=== PATIENT | female | born 1945 | race Caucasian/White ===

== ENCOUNTER 2024-04-20 14:45 | Inpatient (IN) | payer MEDICARE, BC ==
[~2024-04-20] VITALS: Ht 170.2 cm; Wt 53.5 kg
[2024-04-20] MEDS ORDERED: oxyCODONE/APAP (5/325 MG) 1 UDTAB TABLET ONE (15:08)
[2024-04-20] MEDS: oxyCODONE/APAP (5/325 MG) 1 UDTAB TABLET PO ONE (15:16)
[2024-04-20 15:56] LABS: BASOPHILS % (AUTO) 0.5 % (0.0-2.0); EOSINOPHILS # (AUTO) 0.1 K/uL (0.0-0.7); EOSINOPHILS % (AUTO) 1.3 % (0.0-6.0); HEMATOCRIT 35 % (33-45); HEMOGLOBIN 11.7 g/dL (11.5-14.8); LYMPHOCYTES # (AUTO) 1.8 K/uL (0.8-4.8); LYMPHOCYTES % (AUTO) 20.6 % (20.0-44.0); MEAN CORPUSCULAR HEMOGLOBIN 34 PG (26.0-33.0); MEAN CORPUSCULAR HGB CONC 34 g/dl (31.0-36.0); MEAN CORPUSCULAR VOLUME 100 fL (82-100); MONOCYTES # (AUTO) 0.8 K/uL (0.1-1.30); MONOCYTES % (AUTO) 9.1 % (2.0-12.0); NEUTROPHILS # (AUTO) 5.9 K/uL (1.8-8.9); NEUTROPHILS % (AUTO) 68.5 % (43.0-81.0); PLATELET COUNT (AUTO) 249 K/uL (150-450); RED BLOOD CELL COUNT(AUTO) 3.43 MIL/uL (4.0-5.2); RED CELL DISTRIBUTION WIDTH 13.7 % (11.5-15.0); WHITE BLOOD COUNT (AUTO) 8.6 K/uL (4.3-11.0)
[2024-04-20 16:06] LABS: ALBUMIN 3.4 g/dL (3.4-5.0); BILIRUBIN,DIRECT 0.1 mg/dL (0.0-0.2); BILIRUBIN,TOTAL 0.4 mg/dL (0.2-1.0); CALCIUM, SERUM 8.9 mg/dL (8.5-10.1); CREATININE 0.8 mg/dL (0.6-1.3); POTASSIUM 4.7 mmol/L (3.5-5.1); TOTAL PROTEIN, SERUM 6.7 g/dL (6.4-8.2)
[2024-04-20] MEDS ORDERED: MORPHINE SULFATE INJ 2 MG/ML DISP.SYRIN ONE (16:29)
[2024-04-20] MEDS: MORPHINE SULFATE INJ 2 MG/ML DISP.SYRIN IV ONE (16:30)
[2024-04-20 16:42] LABS: INR 1.07 (0.91-1.10); PARTIAL THROMBOPLASTIN TIME 23.9 SEC (24.3-34.3); PROTHROMBIN TIME 11.3 SECS (9.2-11.1)
[2024-04-20] MEDS ORDERED: SERT50TA12 PO (17:53)
[2024-04-20] MEDS ORDERED: OMEG-130 PO (17:53)
[2024-04-20] MEDS ORDERED: ACET325T53 PO (17:53)
[2024-04-20] MEDS ORDERED: DONE5TAB34 PO (17:53)
[2024-04-20] MEDS ORDERED: FOLI-65 PO (17:53)
[2024-04-20] MEDS ORDERED: LISI20TA30 PO (17:53)
[2024-04-20] MEDS ORDERED: Z GUARD REMEDY 4 OZ OINT TP PRN (18:30)
[2024-04-20] MEDS ORDERED: ONDANSETRON HCL/PF 4 MG/2 ML VIAL IVP PRN (18:30)
[2024-04-20] MEDS ORDERED: HYDROCODONE/APAP 5/325MG TABLET PO PRN (18:30)
[2024-04-20] MEDS ORDERED: ACETAMINOPHEN 325 MG TABLET PO PRN (18:30)
[2024-04-20] MEDS ORDERED: MAGNESIUM HYDROXIDE 30 ML UDC PO PRN (18:30)
[2024-04-20] MEDS ORDERED: MAG HYDROX/AL HYDROX/SIMETH 30 ML UDC PO PRN (18:30)
[2024-04-20] MEDS: ENOXAPARIN SODIUM 40 MG/0.4 ML DISP.SYRIN SQ SCH (21:00)
[2024-04-20] MEDS: DONEPEZIL 5 MG TABLET PO SCH (21:12)
[2024-04-20] MEDS: IV D5/0.45 NACL 1,000 ML IV PRN (21:30)
[2024-04-20 22:30] VITALS: BP 130/65; TEMP 97.5; O2SAT 92
[2024-04-21 08:00] VITALS: BP 95/61; TEMP 98.1; O2SAT 95
[2024-04-21] MEDS: PANTOPRAZOLE 40 MG VIAL IV SCH (08:31)
[2024-04-21] MEDS: LISINOPRIL (20MG) 20 MG TABLET PO SCH (08:34)
[2024-04-21] MEDS: MULTIPLE VIT (LYCOPENE/FA/MV,CA,IRON,MIN/LUT)1 TAB PO SCH (08:34)
[2024-04-21] MEDS: SERTRALINE HCL 25 MG TABLET PO SCH (08:36)
[2024-04-21] MEDS ORDERED: [UNRECOGNIZED DRUG - OTHER] PO SCH (09:00)
[2024-04-21] MEDS ORDERED: FISH OIL PO SCH (09:00)
[2024-04-21] MEDS ORDERED: DHA PO SCH (09:00)
[2024-04-21] MEDS ORDERED: OMEGA PO SCH (09:00)
[2024-04-21] MEDS ORDERED: EPA PO SCH (09:00)
[2024-04-21 10:20] LABS: BASOPHILS % (AUTO) 0.1 % (0.0-2.0); EOSINOPHILS % (AUTO) 0.1 % (0.0-6.0); HEMATOCRIT 34 % (33-45); HEMOGLOBIN 11.4 g/dL (11.5-14.8); LYMPHOCYTES # (AUTO) 0.4 K/uL (0.8-4.8); LYMPHOCYTES % (AUTO) 3.7 % (20.0-44.0); MEAN CORPUSCULAR HEMOGLOBIN 34 PG (26.0-33.0); MEAN CORPUSCULAR HGB CONC 34 g/dl (31.0-36.0); MEAN CORPUSCULAR VOLUME 100 fL (82-100); MONOCYTES # (AUTO) 0.8 K/uL (0.1-1.30); MONOCYTES % (AUTO) 7.4 % (2.0-12.0); NEUTROPHILS # (AUTO) 10.1 K/uL (1.8-8.9); NEUTROPHILS % (AUTO) 88.7 % (43.0-81.0); PLATELET COUNT (AUTO) 225 K/uL (150-450); RED BLOOD CELL COUNT(AUTO) 3.35 MIL/uL (4.0-5.2); RED CELL DISTRIBUTION WIDTH 13.5 % (11.5-15.0); WHITE BLOOD COUNT (AUTO) 11.3 K/uL (4.3-11.0)
[2024-04-21 10:30] LABS: CALCIUM, SERUM 8.5 mg/dL (8.5-10.1); CREATININE 0.6 mg/dL (0.6-1.3); MAGNESIUM 1.9 mg/dL (1.8-2.4); PHOSPHORUS 2.4 mg/dL (2.5-4.9); POTASSIUM 3.6 mmol/L (3.5-5.1)
[2024-04-21 10:41] LABS: THYROID STIMULATING HORMONE 1.08 uIU/mL (0.358-3.74)
[2024-04-21] MEDS ORDERED: VANCOMYCIN 1 GM VIAL ONE (13:56)
[2024-04-21] MEDS ORDERED: ANESTHESIA TRAY IN PYXIS 1 EA TRAY MC ONE (13:56)
[2024-04-21] MEDS ORDERED: BUPIVACAINE 0.5 % PF 150 MG/30 ML VIAL ONE (13:56)
[2024-04-21 14:00] VITALS: BP 107/59; TEMP 97.9; O2SAT 95
[2024-04-21 15:48] LABS: INR 1.12 (0.91-1.10); PROTHROMBIN TIME 11.8 SECS (9.2-11.1)
[2024-04-21] MEDS ORDERED: ROCURONIUM BROMIDE 50 MG/5 ML ONE (16:49)
[2024-04-21] MEDS ORDERED: FENTANYL PF 100MCG/2ML AMPUL ONE (16:49)
[2024-04-21] MEDS: Sodium Phosphate 15 MMOL in IV NS 0.9% 245 ML IV SCH (18:51)
[2024-04-21 18:59] VITALS: BP 136/73; TEMP 97.6; O2SAT 94
[2024-04-21] MEDS ORDERED: MORPHINE SULFATE INJ 2 MG/ML DISP.SYRIN IV PRN (19:30)
[2024-04-21] MEDS ORDERED: ENOXAPARIN SODIUM 40 MG/0.4 ML DISP.SYRIN SQ SCH (19:30)
[2024-04-21 20:00] VITALS: BP 121/55; TEMP 97.9; O2SAT 93
[2024-04-21] MEDS: IV D5/0.45 NACL W/20 MEQ KCL 1L IV SCH (20:52)
[2024-04-22] MEDS: ANCEF 1 GM/50 ML D5W IV SCH (00:33)
[2024-04-22] MEDS: ZOLPIDEM TARTRATE 5 MG TABLET PO PRN (01:24)
[2024-04-22 06:59] LABS: BASOPHILS % (AUTO) 0.2 % (0.0-2.0); EOSINOPHILS % (AUTO) 0.4 % (0.0-6.0); HEMATOCRIT 33 % (33-45); HEMOGLOBIN 10.9 g/dL (11.5-14.8); LYMPHOCYTES # (AUTO) 0.7 K/uL (0.8-4.8); LYMPHOCYTES % (AUTO) 7.9 % (20.0-44.0); MEAN CORPUSCULAR HEMOGLOBIN 35 PG (26.0-33.0); MEAN CORPUSCULAR HGB CONC 33 g/dl (31.0-36.0); MEAN CORPUSCULAR VOLUME 103 fL (82-100); MONOCYTES # (AUTO) 1.2 K/uL (0.1-1.30); MONOCYTES % (AUTO) 13.3 % (2.0-12.0); NEUTROPHILS # (AUTO) 7.1 K/uL (1.8-8.9); NEUTROPHILS % (AUTO) 78.2 % (43.0-81.0); PLATELET COUNT (AUTO) 203 K/uL (150-450); RED BLOOD CELL COUNT(AUTO) 3.17 MIL/uL (4.0-5.2); RED CELL DISTRIBUTION WIDTH 13.8 % (11.5-15.0)
[2024-04-22 07:23] LABS: CREATININE 0.6 mg/dL (0.6-1.3); MAGNESIUM 2.1 mg/dL (1.8-2.4); PHOSPHORUS 2.9 mg/dL (2.5-4.9)
[2024-04-22 08:00] VITALS: BP 126/85; TEMP 98.6; O2SAT 95
[2024-04-22] MEDS: ENOXAPARIN SODIUM 40 MG/0.4 ML DISP.SYRIN SQ SCH (09:33)
[2024-04-22] MEDS: HYDROCODONE/APAP 10/325MG TABLET PO PRN (17:18)
[2024-04-22 20:00] VITALS: BP 115/53; TEMP 98.1; O2SAT 97
[2024-04-23 08:00] VITALS: BP 117/66; TEMP 98.2; O2SAT 94
[2024-04-23 08:42] VITALS: BP 117/66
[2024-04-23] MEDS: PANTOPRAZOLE 40 MG TABLET.DR PO SCH (08:42)
== END 2024-04-23 14:50 | DRG 522 ==
LOC: ER 14:50 → MED 19:59
PROVIDERS: ADMIT Student in an Organized Health Care Education/Training Program; ATTEND Internal Medicine
PROC: 0SRS0JA Replacement of Left Hip Joint, Femoral Surface with Synthetic Substitute, Uncemented, Open Approach (ICD-10-PCS; principal; 2024-04-21)
DX: S72.012A Unspecified intracapsular fracture of left femur, initial encounter for closed fracture (principal); W01.0XXA Fall on same level from slipping, tripping and stumbling without subsequent striking against object, initial encounter; Y93.9 Activity, unspecified; Y92.89 Other specified places as the place of occurrence of the external cause; I10 Essential (primary) hypertension; F03.90 Unspecified dementia, unspecified severity, without behavioral disturbance, psychotic disturbance, mood disturbance, and anxiety
CPT/HCPCS: 36415; 71045-TC; 73020; 73700-TC; 80048-TC; 80076-TC; 83735-TC; 84100-TC; 84443-TC; 85025-TC; 85610-TC; 85730-TC; 86850-TC; 87081-TC; 93307-TC; 97110-TC; 97116-TC; 97530-TC; A4217; A4223; A6209; A6253; A9563; C1776; G0378; J0690; J1650; J2270; J2470; J2704; J3010; J3370; J3480; J3490; J7050; J7060

== ENCOUNTER 2025-02-04 13:27 | Inpatient (IN) | payer MEDICARE, BC ==
[~2025-02-04] VITALS: Ht 152.4 cm; Wt 43.1 kg
[~2025-02-04 13:27] MED LIST: ACET325T53 PO; DONE5TAB34 PO; FOLI-65 PO; LISI20TA30 PO; OMEG-130 PO; SERT50TA12 PO
[2025-02-04 15:46] LABS: PLATELET COUNT (AUTO) 403 K/uL (150-450); RED BLOOD CELL COUNT(AUTO) 3.23 MIL/uL (4.0-5.2); RED CELL DISTRIBUTION WIDTH 13.9 % (11.5-15.0); WHITE BLOOD COUNT (AUTO) 8.8 K/uL (4.3-11.0)
[2025-02-04 15:54] LABS: CALCIUM, SERUM 9.5 mg/dL (8.5-10.1); CREATININE 1.0 mg/dL (0.6-1.3); SODIUM SERUM 141.0 mmol/L (136-145); UREA NITROGEN, BLOOD 12.0 mg/dL (7-18)
[2025-02-04 16:01] LABS: INR 1.09 (0.91-1.10)
[2025-02-04] MEDS: HYDROCODONE/APAP 10/325MG TABLET PO PRN (17:16)
[2025-02-04] MEDS: ENOXAPARIN SODIUM 30 MG/0.3 ML DISP.SYRIN SQ SCH (17:21)
[2025-02-04] MEDS ORDERED: ALPR0.5T8 PO (17:24)
[2025-02-04] MEDS ORDERED: IBUP-2715 PO (17:24)
[2025-02-04] MEDS ORDERED: MIRT-90 PO (17:24)
[2025-02-04] MEDS ORDERED: SERT100T12 PO (17:24)
[2025-02-04] MEDS ORDERED: RISP0.5T65 PO (17:24)
[2025-02-04] MEDS ORDERED: Z GUARD REMEDY 4 OZ OINT TP PRN (17:30)
[2025-02-04] MEDS ORDERED: ONDANSETRON HCL/PF 4 MG/2 ML VIAL IVP PRN (17:30)
[2025-02-04] MEDS: LIDOCAINE 5% (PATCH) 1 EA PATCH TP SCH (17:58)
[2025-02-04 20:00] VITALS: BP 96/54; TEMP 98.2; O2SAT 96
[2025-02-05 04:20] VITALS: BP 127/65; TEMP 98; O2SAT 96
[2025-02-05 06:02] LABS: PLATELET COUNT (AUTO) 382 K/uL (150-450); RED BLOOD CELL COUNT(AUTO) 3.06 MIL/uL (4.0-5.2); RED CELL DISTRIBUTION WIDTH 14.1 % (11.5-15.0); WHITE BLOOD COUNT (AUTO) 8.2 K/uL (4.3-11.0)
[2025-02-05 06:19] LABS: CALCIUM, SERUM 9.0 mg/dL (8.5-10.1); CREATININE 0.9 mg/dL (0.6-1.3); PHOSPHORUS 3.6 mg/dL (2.5-4.9); SODIUM SERUM 139.0 mmol/L (136-145); UREA NITROGEN, BLOOD 14.0 mg/dL (7-18)
[2025-02-05] MEDS: PANTOPRAZOLE 40 MG TABLET.DR PO SCH (06:38)
[2025-02-05] MEDS: ACETAMINOPHEN 325 MG TABLET PO PRN (11:18)
[2025-02-05] MEDS ORDERED: HYDR-3980 PO (11:55)
[2025-02-05] MEDS ORDERED: LIDO30AD10 TP (11:55)
[2025-02-05 20:00] VITALS: BP 122/54; TEMP 100.1; O2SAT 100
[2025-02-06 04:00] VITALS: BP 123/57; TEMP 99.1; O2SAT 99
[2025-02-06 08:00] VITALS: BP 128/70; TEMP 97.5; O2SAT 99
[2025-02-06] MEDS ORDERED: LIDOCAINE 5% (PATCH) 1 EA PATCH TP SCH (10:00)
[2025-02-06] MEDS ORDERED: ALPRAZOLAM 0.5 MG TABLET PO PRN (10:00)
[2025-02-06 16:00] VITALS: BP 136/76; TEMP 98.1; O2SAT 99
[2025-02-06 20:00] VITALS: BP 135/70; TEMP 98.1; O2SAT 98
[2025-02-06] MEDS: MIRTAZAPINE 15 MG TABLET PO SCH (22:05)
[2025-02-06] MEDS: DONEPEZIL 5 MG TABLET PO SCH (22:05)
[2025-02-07 04:00] VITALS: BP 150/63; TEMP 97.9; O2SAT 97
[2025-02-07 08:00] VITALS: BP_SYST 120; BP_SYST 148; BP_DIAS 64; BP_DIAS 78; TEMP 96.7; TEMP 98.2; O2SAT 97; O2SAT 99
[2025-02-07] MEDS: SERTRALINE HCL 50 MG TABLET PO SCH (09:03)
[2025-02-07 09:04] VITALS: BP 120/64
[2025-02-07] MEDS: LISINOPRIL (20MG) 20 MG TABLET PO SCH (09:04)
== END 2025-02-07 20:52 | DRG 534 ==
LOC: ER 13:28 → MEDSG1 16:25
PROVIDERS: ADMIT Nurse Practitioner Acute Care; ATTEND Nurse Practitioner Acute Care
PROC: 0QSCXZZ Reposition Left Lower Femur, External Approach (ICD-10-PCS; principal; 2025-02-04)
DX: S72.435A Nondisplaced fracture of medial condyle of left femur, initial encounter for closed fracture (principal); W10.9XXA Fall (on) (from) unspecified stairs and steps, initial encounter; Y92.099 Unspecified place in other non-institutional residence as the place of occurrence of the external cause; I12.9 Hypertensive chronic kidney disease with stage 1 through stage 4 chronic kidney disease, or unspecified chronic kidney disease; N18.9 Chronic kidney disease, unspecified; D63.8 Anemia in other chronic diseases classified elsewhere; F03.90 Unspecified dementia, unspecified severity, without behavioral disturbance, psychotic disturbance, mood disturbance, and anxiety; Z96.642 Presence of left artificial hip joint; Z79.899 Other long term (current) drug therapy; Y93.01 Activity, walking, marching and hiking; E78.5 Hyperlipidemia, unspecified; M81.0 Age-related osteoporosis without current pathological fracture
CPT/HCPCS: 36415; 71045-TC; 73564-TC; 73700-TC; 80048-TC; 83735-TC; 84100-TC; 85025-TC; 85730-TC; 87081-TC; 97110-TC; 97530-TC; 97535-TC; G0378; J1650